=== PATIENT | male | born 1995 | race Caucasian/White ===

== ENCOUNTER 2016-10-29 20:10 | Emergency (ER) | payer SELFPAY ==
[2016-10-29 20:22] VITALS: TEMP 98.8; BMI 40.2
[2016-10-29 20:36] LABS: AUTOMATED BASOPHIL 0.9 % (0-2); AUTOMATED LYMPH 24.3 % (17-44); AUTOMATED MONOCYTE 6.9 % (3-10); AUTOMATED NEUTROPHIL 63.9 % (45-76); MPV 9.6 fL (7.4-10.4)
[2016-10-29 20:50] LABS: BLOOD UREA NITROGEN 11 MG/DL (9-20); CALCIUM 9.3 MG/DL (8.4-10.2); CALCULATED OSMOLALITY 268 MOs/Kg (270-290); CHLORIDE 101 mEq/L (98-107); GLUCOSE 98 MG/DL (70-99); PARTIAL THROMB. TIME 27.5 SEC (22-35); SODIUM LEVEL 140 mEq/L (137-146); TOTAL PROTEIN 7.5 G/DL (6.3-8.2)
--- NOTE | 2016-10-29 21:23 | DIRPT ---
CLINICAL DATA: 21-year-old male with a history of chest pain EXAM: CHEST - 2 VIEW COMPARISON: None. FINDINGS: Cardiomediastinal silhouette projects within normal limits in size and contour. No confluent airspace disease, pneumothorax, or pleural effusion. No displaced fracture. Unremarkable appearance of the upper abdomen. IMPRESSION: No radiographic evidence of acute cardiopulmonary disease. Signed, Collin Stoddard, [facility] Electronically Signed By: Collin Stoddard D.O. On: 10/29/2016 21:20
--- NOTE | 2016-10-29 21:27 | EDPRACDOC ---
- General Information Chief Complaint: Chest Pain Stated Complaint: CHEST PAIN/SYNCOPAL EPISODES Time Seen by Provider: 10/29/16 21:10 Information Source: Patient Mode Of Arrival: Car Home Medications: Home Medications No Home Medications 05/28/15 Allergies/Adverse Reactions: Allergies Allergy/AdvReac Type Severity Reaction Status Date / Time amoxicillin Allergy Anaphylaxis Verified 10/29/16 20:22 * codeine Allergy Hives* Verified 10/29/16 20:22 - History of Present Illness Onset: 35 min Medications/Treatment [employer] Medications [employer] (Medication/ CBG 115 done in triage Dose/Time) HPI: 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 HE REPORTS DYSPNEA AND HYPERVENTILATION PRIOR TO BLACKING OUT. 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 Presyncopal phase:: Reports: Emotions. Denies: Chest Pain Syncopal phase:: Reports: At Rest. Denies: Seizure activity Postsyncopal phase:: Reports: Rapid recovery Associated Signs/Symptoms: Reports: Palpitations, SOB. Denies: Chest pain, Diarrhea, Fever, Nausea - Treatment Prior to ED Arrival Reported Medications/Treatment [employer] Medications [employer] (Medication/ CBG 115 done in triage Dose/Time) ED Past Medical History - History Reviewed Yes Nurses notes reviewed and agree except as marked No Past Medical History: Yes Patient has no past medical history - Patient Medical History Surgical History: Reports: Tonsillectomy/Adnoidectomy - Social Medical History Smoking Status: Current some day smoker Lives In: Home EDM Review of Systems - Review of Systems ROS Negative Except as Marked: Yes All systems reviewed and were negative except as marked Respiratory: Shortness of Breath Cardiovascular: Palpitations, Syncope. negative: Chest Pain Psychiatric: Anxiety - Physical Exam Constitutional: Alert Oriented to: Time, Person, Place Last recorded Vital Signs: Last Vital Signs Temp 98.8 F 10/29/16 20:16 Pulse 83 10/29/16 20:16 Resp 20 10/29/16 20:16 BP 137/76 10/29/16 20:16 Pulse Ox 98 10/29/16 20:16 Oxygen Pulse Oxygen Saturation 98 O2 Device Room Air Oxygen Flow Rate Fraction of Inspired Oxygen ( FIO2) - HEENT Head: negative: Deformity, Laceration Eye Exam: negative: Conjunctival Injection, Pale Conjunctiva Oropharynx: negative: Membranes Dry Nose: negative: Congestion, Discharge Neck: negative: Limited ROM - Respiratory/Cardiovascular Respiratory: Normal - CTA. negative: Accessory Muscle Use, Diminished, Tachypnea Cardiovascular: negative: Bradycardia, Tachycardia, Irregular - Musculoskeletal Extremities: Radial Pulse (PALPABLE) - Integumentary Skin: Warm, Dry. negative: Rash - Neurologic Memory Impaired: Normal Motor Function: Normal Mood Description: Anxious, Appropriate Thought: Coherent Perception: Normal - Results 10/29/16 20:21 10/29/16 20:21 WBC 9.3 xk/uL (3.8-10.8) 10/29/16 20:21 RBC 5.44 xM/uL (4.70-6.10) 10/29/16 20:21 Hgb 15.4 g/dL (14.0-18.0) 10/29/16 20: Hct 44.9 % (42-52) 10/29/16 20:21 MCV 83 fL (80-94) 10/29/16 20:21 MCH 28.3 pg (27-32) 10/29/16 20: MCHC 34.3 g/dl (33-36) 10/29/16 20:21 RDW 13.4 % (11.5-14.5) 10/29/16 20:21 Plt Count 210 xk/uL (130-400) 10/29/16 20:21 MPV 9.6 fL (7.4-10.4) 10/29/16 20:21 Neut % (Auto) 63.9 % (45-76) 10/29/16 20:21 Lymph % (Auto) 24.3 % (17-44) 10/29/16 20:21 Holmes % (Auto) 6.9 % (3-10) 10/29/16 20:21 Eos % (Auto) 4.0 % (0-5) 10/29/16 20:21 Baso % (Auto) 0.9 % (0-2) 10/29/16 20: Absolute Neuts (auto) 5.86 xk/uL (1.7-8.2) 10/29/16 20: Absolute Lymphs (auto) 2.23 xk/uL (0.65-4.75) 10/29/16 20: PT 10.2 SEC (9.2-11.2) 10/29/16 20:21 INR 1.0 10/29/16 20:21 APTT 27.5 SEC (22-35) 10/29/16 20:21 D-Dimer Quant (PE/DVT) 238 ng/mL (<500) 10/29/16 20:21 Sodium 140 mEq/L (137-146) 10/29/16 20:21 Potassium 4.0 mEq/L (3.5-5.1) 10/29/16 20:21 Chloride 101 mEq/L (98-107) 10/29/16 20:21 Carbon Dioxide 27 mMOL/L (22-33) 10/29/16 20:21 Anion Gap 16 mEq/L (8-16) 10/29/16 20:21 BUN 11 MG/DL (9-20) 10/29/16 20:21 Creatinine 0.70 MG/DL (0.66-1.25) 10/29/16 20:21 Estimated GFR (MDRD) > 60 mL/min (>=60) 10/29/16 20:21 Glucose 98 MG/DL (70-99) 10/29/16 20:21 POC Capillary Glucose 115 MG/DL (70-99) H 10/29/16 20:19 Calculated Osmolality 268 MOs/Kg (270-290) L 10/29/16 20:21 Calcium 9.3 MG/DL (8.4-10.2) 10/29/16 20:21 Total Bilirubin 0.4 MG/DL (0.2-1.3) 10/29/16 20:21 AST 29 IU/L (17-59) 10/29/16 20:21 ALT 62 IU/L (21-72) 10/29/16 20:21 Alkaline Phosphatase 51 IU/L (38-126) 10/29/16 20:21 Troponin I < 0.01 ng/mL (<.04) 10/29/16 20:21 [id number]-Gxfblsuiquj Pept 59 pg/mL (0-450) 10/29/16 20:21 Total Protein 7.5 G/DL (6.3-8.2) 10/29/16 20:21 Albumin 4.1 G/DL (3.5-5.0) 10/29/16 20:21 Lab Results 10/29/16 10/29/16 10/29/16 20:21 20:21 20:21 WBC 9.3 RBC 5.44 Hgb 15.4 Hct 44.9 MCV 83 MCH 28.3 MCHC 34.3 RDW 13.4 Plt Count 210 MPV 9.6 Neut % (Auto) 63.9 Lymph % (Auto) 24.3 Holmes % (Auto) 6.9 Eos % (Auto) 4.0 Baso % (Auto) 0.9 Absolute Neuts (auto) 5.86 Absolute Lymphs (auto) 2.23 PT 10.2 INR 1.0 APTT 27.5 D-Dimer Quant (PE/DVT) 238 Sodium Potassium Chloride Carbon Dioxide Anion Gap BUN Creatinine Estimated GFR (MDRD) Glucose POC Capillary Glucose Calculated Osmolality Calcium Total Bilirubin AST ALT Alkaline Phosphatase Troponin I Qcp-Z-Pqrqkaxawco Pept Total Protein Albumin 10/29/16 10/29/16 20:21 20:19 WBC RBC Hgb Hct MCV MCH MCHC RDW Plt Count MPV Neut % (Auto) Lymph % (Auto) Holmes % (Auto) Eos % (Auto) Baso % (Auto) Absolute Neuts (auto) Absolute Lymphs (auto) PT INR APTT D-Dimer Quant (PE/DVT) Sodium 140 Potassium 4.0 Chloride 101 Carbon Dioxide 27 Anion Gap 16 BUN 11 Creatinine 0.70 Estimated GFR (MDRD) > 60 Glucose 98 POC Capillary Glucose 115 H Calculated Osmolality 268 L Calcium 9.3 Total Bilirubin 0.4 AST 29 ALT 62 Alkaline Phosphatase 51 Troponin I < 0.01 Fcv-P-Gkmfrcasjtn Pept 59 Total Protein 7.5 Albumin 4.1 - EKG EKG #1 EKG Time: 20:29 -: Yes EKG interpreted by me Rate: bpm: 72 [place]: Normal Rhythm: NSR Block: None Hypertrophy: None ST: Normal Decision Time to Discharge: 21:52 - Departure Yes I personally saw and evaluated the patient. Disposition: Home Condition: Stable Final Diagnosis: Near syncope, Anxiety Instructions: Near Syncope (ED), Anxiety (ED) Education/Counseling Given To: Patient, Significant Other Education/Counseling Given Regarding: Diagnosis, Treatment, Prognosis, Follow Up Referrals: Jose Maria Langston MD [Primary Care Provider] - Call for Appointment Additional Instructions: MAKE SURE TO EAT AND DRINK WHILE WORKING.
[2016-10-29 21:29] LABS: ALL NEG? YES; MDMA* NEG (NEGATIVE); METHAMPHETAMINES NEG (NEGATIVE); OXYCODONE NEG (NEGATIVE)
[2016-10-29 21:32] LABS: LEUKOCYTES/URINE NEG (NEGATIVE); NITRITE/URINE NEG (NEGATIVE); URINE OCCULT BLOOD NEG (NEG/TRACE)
--- NOTE | 2016-10-29 21:37 | DIRPT ---
CLINICAL DATA: Syncope. Near syncopal episodes day, [address]. Chest pain and headache following syncopal episodes. EXAM: CT HEAD WITHOUT CONTRAST TECHNIQUE: Contiguous axial images were obtained from the base of the skull through the vertex without intravenous contrast. COMPARISON: None. FINDINGS: There is no intra or extra-axial fluid collection or mass lesion. The basilar cisterns and ventricles have a normal appearance. There is no CT evidence for acute infarction or hemorrhage. Bone windows are unremarkable. IMPRESSION: Negative exam. Electronically Signed By: Rose Tan M.D. On: 10/29/2016 21:34
[2016-10-29 22:09] VITALS: BP 114/75; PULSE 69
== END 2016-10-29 22:08 | disposition home or self-care (01) ==
LOC: ED 20:10
DX: R55 Syncope and collapse (principal); F41.9 Anxiety disorder, unspecified; Z72.0 Tobacco use; R06.02 Shortness of breath
CPT/HCPCS: 36415; 70450; 71020; 80053; 80307; 81001; 82962; 83880; 84484; 85025; 85379; 85610; 85730; 93005; 99284